=== PATIENT | female | born 2000 | race Asian ===

== ENCOUNTER 2025-04-03 21:50 | Observation (INO) | payer OTHER ==
[2025-04-03 22:51] LABS: ABSOLUTE IMMATURE GRANULOCYTES 0.03 x10^3/uL (0.0-0.031); BASOPHILS # 0.02 x10^3/uL (0.01-0.08); EOSINOPHIL % 0.5 % (0.7-5.8); EOSINOPHILS # 0.05 x10^3/uL (0.04-0.36); MCHC 31.8 g/dl (32.2-35.5); MEAN CELL VOLUME 91.3 fl (79.4-94.8); MEAN PLT VOLUME 8.9 fl (9.4-12.3); MONOCYTE # 0.36 x10^3/uL (0.24-0.86); MONOCYTE % 3.8 % (4.7-12.5); RDW 12.1 % (12.1-16.5)
[2025-04-03 22:56] LABS: INR 1.03 (0.83-1.09); PROTHROMBIN TIME (PATIENT) 11.2 SEC (9.7-13.0)
[2025-04-03] MEDS ORDERED: ACETAMINOPHEN INJECTION 100 ML ONE (23:01)
[2025-04-03] MEDS: ACETAMINOPHEN 1000 MG/100 ML BAG IVPB ONE (23:04)
[2025-04-03 23:13] VITALS: BMI 29.0
[2025-04-03] MEDS: FOLIC ACID INJECTION - 1 MG, THIAMINE HCL 100 MG, MULTIVIT INJECTION ADULT 10 ML in SOD... IVPB ONE (23:19)
[2025-04-03 23:29] LABS: CO2 25.0 mmol/L (21-32); GLUCOSE,RANDOM 110.0 mg/dL (74-106)
[2025-04-03 23:32] LABS: CREATININE 0.9 mg/dL (0.55-1.3); SGOT/AST 22.0 U/L (15-37); SGPT/ALT 42.0 U/L (13-61)
[2025-04-03 23:34] LABS: ALK PHOS 57.0 U/L (45-117); TOT PROT 7.7 g/dl (6.4-8.2)
[2025-04-04] MEDS ORDERED: KETOROLAC TROMETHAMINE 30 MG/1 ML VIAL ONE (00:45)
[2025-04-04] MEDS ORDERED: TOPIRAMATE 25 MG TABLET ONE ×2 (00:45→10:07)
[2025-04-04] MEDS: KETOROLAC TROMETHAMINE 30 MG/1 ML VIAL IVPUSH ONE (00:52)
[2025-04-04] MEDS: TOPIRAMATE 25 MG TABLET PO ONE (00:53)
[2025-04-04] MEDS ORDERED: KETOROLAC TROMETHAMINE 15 MG/ML VIAL IM PRN (02:12)
[2025-04-04 06:09] LABS: CO2 29.0 mmol/L (21-32); GLUCOSE,RANDOM 77.0 mg/dL (74-106)
[2025-04-04 06:12] LABS: CREATININE 1.0 mg/dL (0.55-1.3); SGPT/ALT 42.0 U/L (13-61)
[2025-04-04 06:13] LABS: SGOT/AST 21.0 U/L (15-37)
[2025-04-04 06:14] LABS: TOT PROT 6.6 g/dl (6.4-8.2)
[2025-04-04 06:15] LABS: ALK PHOS 57.0 U/L (45-117)
[2025-04-04 06:27] LABS: MCHC 31.7 g/dl (32.2-35.5); MEAN CELL VOLUME 92.1 fl (79.4-94.8); MEAN PLT VOLUME 9.1 fl (9.4-12.3); RDW 12.1 % (12.1-16.5)
[2025-04-04 06:58] LABS: EPI CELLS 34 /uL (0-25.1); HYALINE CASTS 0 /uL (0-3.1); URINE APPEARANCE CLEAR; URINE BACTERIA 1248 /uL (0-1359); URINE BILIRUBIN NEGATIVE (NEGATIVE); URINE COLOR YELLOW; URINE GLUCOSE (UA) NEGATIVE (NEGATIVE); URINE KETONE NEGATIVE (NEGATIVE); URINE LEUK ESTERASE 2+ (NEGATIVE); URINE NITRITE NEGATIVE (NEGATIVE); URINE PROTEIN NEGATIVE (NEGATIVE); URINE RBC 20 /uL (0-23.9); URINE UROBILINOGEN 0.2 mg/dL (0.2-1.0); URINE WBC 164 /uL (0-25.8)
[2025-04-04] MEDS ORDERED: ACETAMINOPHEN 500 MG TABLET (FP) ONE (08:28)
[2025-04-04] MEDS: ACETAMINOPHEN 500 MG TABLET (FP) PO PRN (08:35)
[2025-04-04] MEDS: SODIUM CHLORIDE 1,000 ML IV SCH (08:43)
[2025-04-04] MEDS ORDERED: SPIRONOLACTONE 25 MG TABLET ONE (10:07)
[2025-04-04] MEDS: SPIRONOLACTONE 25 MG TABLET PO SCH (10:15)
[2025-04-04] MEDS: MAGNESIUM 1GM/D5W 100ML - 100 ML IVPB IVPB ONE (20:22)
[2025-04-05] MEDS: TOPIRAMATE 25 MG TABLET PO SCH (10:59)
[2025-04-06 07:10] LABS: MCHC 31.3 g/dl (32.2-35.5); MEAN CELL VOLUME 92.4 fl (79.4-94.8); MEAN PLT VOLUME 9.2 fl (9.4-12.3); RDW 12.1 % (12.1-16.5)
[2025-04-06 07:36] LABS: CO2 25.0 mmol/L (21-32); GLUCOSE,RANDOM 93.0 mg/dL (74-106)
[2025-04-06 07:39] LABS: CREATININE 0.9 mg/dL (0.55-1.3)
[2025-04-06 11:16] VITALS: TEMP 98.6
[2025-04-06 14:02] VITALS: BP 121/67; PULSE 70; RESP 18
== END 2025-04-06 17:24 | disposition home or self-care (01) ==
LOC: JER 21:50 → JERBED 04-04 00:09 → J4W 04-04 15:14
PROVIDERS: ADMIT Hospitalist; ATTEND Internal Medicine
PROC: 3E033GC Introduction of Other Therapeutic Substance into Peripheral Vein, Percutaneous Approach (ICD-10-PCS; principal; 2025-04-04)
PROC: 3E033NZ Introduction of Analgesics, Hypnotics, Sedatives into Peripheral Vein, Percutaneous Approach (ICD-10-PCS; 2025-04-04)
PROC: 3E0333Z Introduction of Anti-inflammatory into Peripheral Vein, Percutaneous Approach (ICD-10-PCS; 2025-04-04)
DX: R55 Syncope and collapse (principal); W18.39XA Other fall on same level, initial encounter; Y93.89 Activity, other specified; Y92.238 Other place in hospital as the place of occurrence of the external cause; Y99.0 Civilian activity done for income or pay; G43.909 Migraine, unspecified, not intractable, without status migrainosus; J45.909 Unspecified asthma, uncomplicated; E28.2 Polycystic ovarian syndrome
CPT/HCPCS: 0241U-QW; 36415; 70450-TC; 70553-TC; 80048; 80053; 80307; 81003; 82533; 82550; 82947; 82951; 82952; 82962; 83036; 83525; 83527; 83735; 84100; 84443; 84484; 84703; 85025; 85027; 85610; 93005; 93010; 93306-TC; 95816; 96365; 96375; 99285-25; A9576; G0378